=== PATIENT | female | born 1995 | race Caucasian/White ===

== ENCOUNTER 2018-07-10 17:28 | Emergency (ER) | payer OTHER ==
--- NOTE | 2018-07-10 17:42 | PDOC ---
Rapid Medical Evaluation Time Seen by Provider: 07/10/18 17:38 Medical Evaluation: Allergies Allergy/AdvReac Type Severity Reaction Status Date / Time No Known Allergies Allergy Verified 04/06/15 11:19 07/10/18 17:38 I have performed a brief in-person evaluation of this patient. The patient presents with a chief complaint of: abd cramping. +HPT. LMP-06/16/18 Pertinent physical exam findings: deferred I have ordered the following: labs, urine The patient will proceed to the ED for further evaluation. Discharge Disposition - Diagnosis Abdominal cramping - Referrals - Patient Instructions - Post Discharge Activity
[2018-07-10 17:57] VITALS: BP 157/82; PULSE 93; TEMP 99; BMI 30.7
[2018-07-10 17:57] LABS: BASO % 1.1 % (0-2.0); EOS % 0.7 % (0-4.5); HEMATOCRIT 38.9 % (32.4-45.2); HEMOGLOBIN 13.5 GM/dL (10.7-15.3); LYMPH % 33.8 % (8-40); MCH 31.7 pg (25.7-33.7); MCHC 34.7 g/dl (32.0-36.0); MEAN CELL VOLUME 91.3 fl (80-96); MEAN PLT VOLUME 10.8 fl (7.5-11.1); MONO % 5.5 % (3.8-10.2); NEUT % 58.9 % (42.8-82.8); PLATELET COUNT 259 K/MM3 (134-434); RBC 4.26 M/mm3 (3.60-5.2); RDW 13.4 % (11.6-15.6); WHITE BLOOD COUNT 9.9 K/mm3 (4.0-10.0)
[2018-07-10 18:05] LABS: URINE APPEARANCE CLEAR; URINE BILIRUBIN NEGATIVE (<2.0 mg/dL); URINE COLOR LTYELLOW; URINE GLUCOSE (UA) NEGATIVE (NEGATIVE); URINE KETONE 1+ (NEGATIVE); URINE LEUK ESTERASE TRACE (NEGATIVE); URINE NITRITE NEGATIVE (NEGATIVE); URINE PROTEIN NEGATIVE (NEGATIVE); URINE UROBILINOGEN NEGATIVE mg/dL (0.2-1.0)
[2018-07-10 18:07] LABS: EPI CELLS FEW /HPF (FEW); URINE HYALINE CAST 1 /lpf; URINE MUCUS RARE
[2018-07-10 18:19] LABS: ANION GAP 8 MMOL/L (8-16); BLOOD UREA NITROGEN 8 mg/dL (7-18); CALCIUM 8.5 mg/dL (8.5-10.1); CHLORIDE 101 mmol/L (98-107); CO2 26 mmol/L (21-32); CREATININE 0.7 mg/dL (0.55-1.3); GLUCOSE,RANDOM 94 mg/dL (74-106); POTASSIUM 3.5 mmol/L (3.5-5.1); SODIUM 134 mmol/L (136-145)
[2018-07-10 18:28] LABS: HCG,QUALITATIVE URINE POSITIVE
--- NOTE | 2018-07-10 18:50 | PDOC ---
History of Present Illness - General Chief Complaint: ,Possible Stated Complaint: ABDOMINAL PAIN Time Seen by Provider: 07/10/18 17:38 History Source: Patient Exam Limitations: Clinical Condition - History of Present Illness Initial Comments: 07/10/18 18:45 Patient with no significant past medical history present with complaint of three -day history of suprapubic tenderness, united frequency and dysuria with positive home tests. Patient denies nausea or vomiting. LMP June 14. Patient denies any other symptoms. Denies vaginal bleeding. Timing/Duration: other (3 days) Past History - Past Medical History Allergies/Adverse Reactions: Allergies Allergy/AdvReac Type Severity Reaction Status Date / Time No Known Allergies Allergy Verified 04/06/15 11:19 Home Medications: Ambulatory Orders Nitrofurantoin Monohyd/M-Cryst [Macrobid -] 100 mg PO BID #14 capsule 07/10/18 Vit No.129/Iron/Folic [ One Daily Tablet] 1 each PO DAILY 30 Days #30 tablet 07/10/18 Asthma: Yes COPD: No Diabetes: Yes (PRE-DIABETIC) - Immunization History Immunization Up to Date: Yes - Suicide/Smoking/Psychosocial Hx Smoking Status: No Smoking History: Never smoked Number of Cigarettes Smoked Daily: 0 Information on smoking cessation initiated: No Hx Alcohol Use: No Drug/Substance Use Hx: No Review of Systems - Review of Systems Able to Perform ROS?: Yes Is the patient limited Armenian proficient: No Constitutional: No: Chills, Fever, Malaise HEENTM: No: Symptoms Reported Respiratory: No: Symptoms reported Cardiac (ROS): No: Symptoms Reported ABD/GI: Yes: See HPI, Abdominal cramping (suprapubic tenderness). No: Nausea, Vomiting : Yes: See HPI, Burning, Dysuria, Frequency, Urgency. No: Hematuria Musculoskeletal: No: Back Pain All Other Systems: Reviewed and Negative *Physical Exam - Vital Signs Last Vital Signs Temp Pulse Resp BP Pulse Ox 99.0 F 93 H 16 157/82 100 07/10/18 17:53 07/10/18 17:53 07/10/18 17:53 07/10/18 17:53 07/10/18 17:53 - Physical Exam Comments: 07/10/18 18:47 GENERAL: Well developed, well nourished. Awake and alert. No acute distress. HEENT: Normocephalic, atraumatic. PERRLA, EOMI. No conjunctival pallor. Sclera are non-icteric. Moist mucous membranes. Oropharynx is clear. NECK: Supple. Full ROM. CARDIOVASCULAR: Regular rate and rhythm. No murmurs, rubs, or gallops. Distal pulses are 2+ and symmetric. PULMONARY: No evidence of respiratory distress. Lungs clear to auscultation bilaterally. No wheezing, rales or rhonchi. ABDOMINAL: Mild suprapubic tenderness. Soft. Non-distended. No rebound or guarding. No organomegaly. Normoactive bowel sounds. SKIN: Warm and dry. no cyanosis. Normal capillary refill. No rashes. No jaundice. NEUROLOGICAL: Alert, awake, appropriate. Gait is normal without ataxia. PSYCHIATRIC: Cooperative. Good eye contact. Appropriate mood General Appearance: Yes: Nourished, Appropriately Dressed. No: Apparent Distress Moderate Sedation - Procedure Monitoring Vital Signs: Procedure Monitoring Vital Signs Temperature 99.0 F 07/10/18 17:53 Pulse Rate 93 H 07/10/18 17:53 Respiratory Rate 16 07/10/18 17:53 Blood Pressure 157/82 07/10/18 17:53 O2 Sat by Pulse Oximetry (%) 100 07/10/18 17:53 ED Treatment Course - LABORATORY CBC & Chemistry Diagram: 07/10/18 17:48 07/10/18 17:48 - ADDITIONAL ORDERS Additional order review: Laboratory Results 07/10/18 07/10/18 17:51 17:48 Sodium 134 L Potassium 3.5 Chloride 101 Carbon Dioxide 26 Anion Gap 8 BUN 8 Creatinine 0.7 Creat Clearance w eGFR > 60 Random Glucose 94 Calcium 8.5 Beta HCG, Quant 802.7 Urine Color Ltyellow Urine Appearance Clear Urine pH 5.0 Ur Specific [place] 1.018 Urine Protein Negative Urine Glucose (UA) Negative Urine Ketones 1+ H Urine Blood Negative Urine Nitrite Negative Urine Bilirubin Negative Urine Urobilinogen Negative Ur Leukocyte Esterase Trace Urine WBC (Auto) 3 Urine RBC (Auto) <1 Ur Epithelial Cells Few Hyaline Casts 1 Urine Mucus Rare Urine HCG, Qual Positive 07/10/18 17:48 RBC 4.26 MCV 91.3 MCHC 34.7 RDW 13.4 MPV 10.8 Neutrophils % 58.9 D Lymphocytes % 33.8 D Monocytes % 5.5 Eosinophils % 0.7 Basophils % 1.1 D - RADIOLOGY Radiology Studies Ordered: Category Date Time Status PELVIC / BLADDER US [US] Stat Ultrasound 07/10/18 18:42 Ordered Medical Decision Making - Medical Decision Making 07/10/18 18:51 Patient with no significant past medical history present with complaint of three -day history of urinary frequency, dysuria and suprapubic tenderness with positive home test. Patient denies vaginal bleeding. Exam significant for mild tenderness to suprapubic region without guarding or rebound otherwise normal exam. Beta hCG positive with quantitative beta hCG of 800. CBC and chemistry lab are unremarkable. Pelvic ultrasound ordered to rule out ectopic . Patient be treated for UTI given leukocyte on UA if normal ultrasound with joint follow- up. 07/10/18 19:41 Pelvic ultrasound shows no IUP or adnexal mass which is expected given low beta hCG level of 800. Symptoms likely elderly normal with cystitis versus ectopic . Patient to follow-up with [facility] or ER in 48 hours for repeat beta hCG to evaluate for . Patient is stable for discharge given no vaginal bleeding or symptoms of ectopic on exam. This is a wanted and patient needs close follow-up. Plan discussed with patient and patient agrees with plan and will follow up in ED in 2 days. Strict follow-up instructions given to patient *DC/Admit/Observation/Transfer Diagnosis at time of Disposition: Abdominal cramping, Cystitis, test positive - Discharge Dispostion Disposition: HOME Condition at time of disposition: Stable Decision to Admit order: No - Prescriptions Prescriptions: Nitrofurantoin Monohyd/M-Cryst [Macrobid -] 100 mg PO BID #14 capsule Vit No.129/Iron/Folic [ One Daily Tablet] 1 each PO DAILY 30 Days #30 tablet - Referrals Referrals: Alexandra Gamboa MD [Staff Physician] - - Patient Instructions Additional Instructions: 2 lab work was normal. Your test was positive. Ultrasound did not show any yet given the very early which usually not shown on ultrasound at this age. Follow-up in 2 days with [facility] or in ER for repeat beta hCG blood work to follow-up with ., To emergency room if worsening abdominal pain, vaginal bleeding, severe pelvic pain with nausea vomiting. - Post Discharge Activity
== END 2018-07-10 20:02 | disposition home or self-care (01) ==
LOC: JER 17:28 → JERFT 17:28
DX: O26.891 Other specified pregnancy related conditions, first trimester (principal); O23.11 Infections of bladder in pregnancy, first trimester; Z3A.01 Less than 8 weeks gestation of pregnancy; J45.909 Unspecified asthma, uncomplicated; R73.03 Prediabetes
CPT/HCPCS: 36415; 76817-TC; 80048; 81003; 81015; 84702; 84703; 85025; 86850; 86900; 86901; 87086; 99281-25

== ENCOUNTER 2018-07-12 17:43 | Emergency (ER) | payer OTHER ==
--- NOTE | 2018-07-12 18:03 | PDOC ---
Rapid Medical Evaluation Chief Complaint: ,Possible Time Seen by Provider: 07/12/18 18:03 Medical Evaluation: Allergies Allergy/AdvReac Type Severity Reaction Status Date / Time No Known Allergies Allergy Verified 04/06/15 11:19 07/12/18 18:03 c/o right pelvic pain here for repeat beta HCG and reevaluation. denies vaginal bleeding or discharge PE; patient alert ox3. A: pelvic pain P: labs TVUS patient to the ER for further management of care Discharge Disposition - Diagnosis Pelvic pain - Referrals - Patient Instructions - Post Discharge Activity
[2018-07-12 18:06] VITALS: BP 138/82; PULSE 89; TEMP 98.7; BMI 30.7
[2018-07-12 18:30] LABS: BASO % 0.7 % (0-2.0); EOS % 0.5 % (0-4.5); HEMATOCRIT 39.3 % (32.4-45.2); HEMOGLOBIN 13.4 GM/dL (10.7-15.3); LYMPH % 29.2 % (8-40); MCH 31.4 pg (25.7-33.7); MCHC 34.2 g/dl (32.0-36.0); MEAN CELL VOLUME 91.8 fl (80-96); MEAN PLT VOLUME 11.1 fl (7.5-11.1); MONO % 5.3 % (3.8-10.2); NEUT % 64.3 % (42.8-82.8); PLATELET COUNT 259 K/MM3 (134-434); RBC 4.28 M/mm3 (3.60-5.2); RDW 13.9 % (11.6-15.6); WHITE BLOOD COUNT 11.7 K/mm3 (4.0-10.0)
--- NOTE | 2018-07-12 18:34 | PDOC ---
History of Present Illness - General Chief Complaint: ,Possible Stated Complaint: LABS Time Seen by Provider: 07/12/18 18:03 History Source: Patient Exam Limitations: No Limitations - History of Present Illness Travel History: No Initial Comments: 07/12/18 18:34 Return today for repeat beta hCG and ultrasound. Was here 2 days ago with a beta hCG of 802 and a nondetectable viable uterine . Patient states has minimal cramping, no vaginal drainage or bleeding. Timing/Duration: reports: intermittent Quality: reports: cramping Abdominal Pain Onset Location: reports: suprapubic, unknown Past History - Travel Traveled outside of the country in the last 30 days: No Close contact w/someone who was outside of country & ill: No - Past Medical History Allergies/Adverse Reactions: Allergies Allergy/AdvReac Type Severity Reaction Status Date / Time kiwi Allergy Verified 07/12/18 18:06 latex Allergy Verified 07/12/18 18:06 Home Medications: Ambulatory Orders Nitrofurantoin Monohyd/M-Cryst [Macrobid -] 100 mg PO BID #14 capsule 07/10/18 Vit No.129/Iron/Folic [ One Daily Tablet] 1 each PO DAILY 30 Days #30 tablet 07/10/18 Asthma: Yes COPD: No Diabetes: Yes (PRE-DIABETIC) - Immunization History Immunization Up to Date: Yes - Suicide/Smoking/Psychosocial Hx Smoking Status: No Smoking History: Never smoked Number of Cigarettes Smoked Daily: 0 Hx Alcohol Use: No Drug/Substance Use Hx: No Review of Systems - Review of Systems Able to Perform ROS?: Yes Is the patient limited Cook Islander proficient: Yes Constitutional: Yes: See HPI. No: Symptoms Reported, Fever, Malaise HEENTM: No: Symptoms Reported Respiratory: No: Symptoms reported ABD/GI: Yes: See HPI. No: Symptoms Reported, Diarrhea, Nausea, Abdominal cramping Musculoskeletal: No: Symptoms Reported All Other Systems: Reviewed and Negative *Physical Exam - Vital Signs Last Vital Signs Temp Pulse Resp BP Pulse Ox 98.7 F 89 18 138/82 99 07/12/18 18:05 07/12/18 18:05 07/12/18 18:05 07/12/18 18:05 07/12/18 18:05 - Physical Exam General Appearance: Yes: Nourished, Appropriately Dressed HEENT: positive: DAVI, Normal ENT Inspection, TMs Normal, Pharynx Normal Neck: positive: Supple. negative: Tender Respiratory/Chest: positive: Lungs Clear, Normal Breath Sounds Musculoskeletal: positive: Normal Inspection. negative: CVA Tenderness Extremity: positive: Normal Capillary Refill Integumentary: positive: Dry, Warm, Pale Neurologic: positive: vegetable cook II-XII NML intact, Fully Oriented, Alert, Normal Mood/ Affect, Normal Response, Motor Strength 5/5 Moderate Sedation - Procedure Monitoring Vital Signs: Procedure Monitoring Vital Signs Temperature 98.7 F 07/12/18 18:05 Pulse Rate 89 07/12/18 18:05 Respiratory Rate 18 07/12/18 18:05 Blood Pressure 138/82 07/12/18 18:05 O2 Sat by Pulse Oximetry (%) 99 07/12/18 18:05 ED Treatment Course - LABORATORY CBC & Chemistry Diagram: 07/12/18 18:11 *DC/Admit/Observation/Transfer Diagnosis at time of Disposition: Early stage of - Discharge Dispostion Disposition: HOME Condition at time of disposition: Stable Decision to Admit order: No - Referrals Referrals: Rachael Harrell MD [Staff Physician] - - Patient Instructions Printed Discharge Instructions: DI for Abdominal Pain -- Early Additional Instructions: Rest, avoid heavy lifting or strenuous activity until cleared by DrMicky Drink lots of fluids, Will need repeat lab work/beta hCG and ultrasound in 2-3 days either here or at [facility] Return immediately to emergency department for recurrence of pain, fevers, bleeding or vaginal drainage. - Post Discharge Activity Forms/Work/School Notes: Back to Work
== END 2018-07-12 19:54 | disposition home or self-care (01) ==
LOC: JERFT 17:43
DX: Z09 Encounter for follow-up examination after completed treatment for conditions other than malignant neoplasm (principal); R10.2 Pelvic and perineal pain; O26.891 Other specified pregnancy related conditions, first trimester; Z3A.00 Weeks of gestation of pregnancy not specified
CPT/HCPCS: 36415; 76817-TC; 84702; 85025; 99281-25

== ENCOUNTER 2018-07-28 17:56 | Emergency (ER) | payer OTHER ==
[2018-07-28 18:09] VITALS: BP 125/62; PULSE 86; TEMP 98.5; BMI 30.9
--- NOTE | 2018-07-28 18:09 | PDOC ---
Rapid Medical Evaluation Time Seen by Provider: 07/28/18 18:06 Medical Evaluation: Allergies Allergy/AdvReac Type Severity Reaction Status Date / Time kiwi Allergy Verified 07/28/18 18:06 latex Allergy Verified 07/28/18 18:06 07/28/18 18:06 I have performed a brief in-person evaluation of this patient. The patient presents with a chief complaint of: 22 y/o 7 weeks gravid bleeding and cramping over the last 30 minutes Pertinent physical exam findings:NAD I have ordered the following:Labs US The patient will proceed to the ED for further evaluation. Discharge Disposition - Diagnosis Threatened - Referrals - Patient Instructions - Post Discharge Activity
[2018-07-28 18:31] LABS: BASO % 0.5 % (0-2.0); EOS % 0.7 % (0-4.5); HEMATOCRIT 37.7 % (32.4-45.2); LYMPH % 17.6 % (8-40); MCH 31.5 pg (25.7-33.7); MCHC 34.6 g/dl (32.0-36.0); MEAN CELL VOLUME 91.3 fl (80-96); MEAN PLT VOLUME 10.8 fl (7.5-11.1); MONO % 5.4 % (3.8-10.2); NEUT % 75.8 % (42.8-82.8); PLATELET COUNT 238 K/MM3 (134-434); RBC 4.13 M/mm3 (3.60-5.2); RDW 13.5 % (11.6-15.6)
[2018-07-28 18:44] LABS: INR 1.22 (0.83-1.09); PROTHROMBIN TIME (PATIENT) 14.4 SEC (9.7-13.0)
[2018-07-28 19:27] LABS: ALBUMIN 3.9 g/dl (3.4-5.0); ALK PHOS 78 U/L (45-117); ANION GAP 8 MMOL/L (8-16); BILIRUBIN,TOTAL 0.3 mg/dL (0.2-1); BLOOD UREA NITROGEN 6 mg/dL (7-18); CALCIUM 8.4 mg/dL (8.5-10.1); CHLORIDE 100 mmol/L (98-107); CO2 24 mmol/L (21-32); CREATININE 0.6 mg/dL (0.55-1.3); GLUCOSE,RANDOM 78 mg/dL (74-106); POTASSIUM 3.8 mmol/L (3.5-5.1); SGOT/AST 10 U/L (15-37); SGPT/ALT 18 U/L (13-61); SODIUM 132 mmol/L (136-145); TOT PROT 7.2 g/dl (6.4-8.2)
--- NOTE | 2018-07-28 19:32 | PDOC ---
History of Present Illness - General Chief Complaint: Vaginal Bleeding Stated Complaint: SEVEN WEEKS /BLEEDING Time Seen by Provider: 07/28/18 18:06 History Source: Patient Exam Limitations: No Limitations - History of Present Illness Initial Comments: HPI: 22 y/o female presenting to [facility] ER complaining of bleeding on toilet paper when cleaning after voiding. Pt is 6w3d by LMP (14 Jun 2018). Noticed the blood this evening after returning home work. Endorses lower abdominal pain described as crampy with radiation to lower back. Denies dysuria, hematuria, or vaginal discharge. Is concerned she is having a mischarrage. OBGYN Hx: - A1, spontaneous during first trimester - Abnormal PAP smear last year. S/p colposcopy, reportedly normal. - Denies h/o STD OBGYN: Dr. Cotter PCP: None Medical Hx: - Asthma, managed with albuterol Surgical Hx: - Tonsillectomy Past History - Past Medical History Allergies/Adverse Reactions: Allergies Allergy/AdvReac Type Severity Reaction Status Date / Time kiwi Allergy Verified 07/28/18 18:06 latex Allergy Verified 07/28/18 18:06 Home Medications: Ambulatory Orders Nitrofurantoin Monohyd/M-Cryst [Macrobid -] 100 mg PO BID #14 capsule 07/10/18 Vit No.129/Iron/Folic [ One Daily Tablet] 1 each PO DAILY 30 Days #30 tablet 07/10/18 Asthma: Yes COPD: No Diabetes: Yes (PRE-DIABETIC) - Immunization History Immunization Up to Date: Yes - Suicide/Smoking/Psychosocial Hx Smoking Status: No Smoking History: Never smoked Number of Cigarettes Smoked Daily: 0 Information on smoking cessation initiated: No Hx Alcohol Use: No Drug/Substance Use Hx: No Review of Systems - Review of Systems Able to Perform ROS?: Yes Comments:: In addition to that documented in the HPI above, the additional ROS was obtained : Constitutional: Denies fevers or chills Head: Denies vision changes ENMT: Denies sore throat CV: Denies chest pain Resp: Denies SOB GI: Denies vomiting or diarrhea : Per HPI MSK: Denies recent trauma Skin: Denies new rashes Neuro: Denies new numbness or tingling or weakness Endocrine: Denies polyuria Heme: Denies bleeding or bruising *Physical Exam - Vital Signs Last Vital Signs Temp Pulse Resp BP Pulse Ox 98.5 F 86 18 125/62 100 07/28/18 18:06 07/28/18 18:06 07/28/18 18:06 07/28/18 18:06 07/28/18 18:06 - Physical Exam Comments: Constitutional: Well-developed, well-nourished adult female in no acute distress or obvious discomfort. Found semi-fowlers on hospital hallway bed. Alert and oriented x4. Answered all questions appropriately and completely. Speech was non-labored, non-pressured. Head: Normocephalic. No obvious external signs of trauma. Eyes: Sclerae white. Ears: Hearing grossly intact. Nose: No nasal discharge. Neck: Supple, trachea is midline. Cardiovascular / Chest: Regular rate and regular rhythm. No murmur, rubs, clicks, or gallops. Peripheral pulses: radial pulses full. Respiratory: Breathing unlabored. Equal chest rise and fall. Clear to auscultation bilaterally. No stridor, no wheezing, no rhonchi. Gastrointestinal: abdomen is tender in middle of the left side of the abdomen without rebound or guarding. Globally abdomen is soft and nondistended. No overlying skin lesions or obvious signs of trauma. Neuro: Alert and oriented. Moving all four extremities spontaneously. Skin: Warm, dry, and intact. : No R or L CVA tenderness. Psych: Affect: appropriate. Mood: normal. Female Pelvic: External genitalia unremarkable. Speculum exam revealed trace blood and normal appearing whitish vaginal discharge. Vaginal wall mucosa is unremarkable. Cervix visualized and is unremarkable (closed in appearance without any protruding material). Bimanual exam with right adnexal tenderness but no cervical motion tenderness or any masses appreciated. Sales Apprentice chaperoned exam. Moderate Sedation - Procedure Monitoring Vital Signs: Procedure Monitoring Vital Signs Temperature 98.5 F 07/28/18 18:06 Pulse Rate 86 07/28/18 18:06 Respiratory Rate 18 07/28/18 18:06 Blood Pressure 125/62 07/28/18 18:06 O2 Sat by Pulse Oximetry (%) 100 07/28/18 18:06 ED Treatment Course - LABORATORY CBC & Chemistry Diagram: 07/28/18 18:14 07/28/18 18:14 - ADDITIONAL ORDERS Additional order review: Laboratory Results 07/28/18 07/28/18 18:14 18:14 PT with INR 14.40 H INR 1.22 H Sodium 132 L Potassium 3.8 Chloride 100 Carbon Dioxide 24 Anion Gap 8 BUN 6 L Creatinine 0.6 Creat Clearance w eGFR 123.89 Random Glucose 78 Calcium 8.4 L Total Bilirubin 0.3 AST 10 L ALT 18 Alkaline Phosphatase 78 Total Protein 7.2 Albumin 3.9 07/28/18 18:14 RBC 4.13 MCV 91.3 MCHC 34.6 RDW 13.5 MPV 10.8 Neutrophils % 75.8 Lymphocytes % 17.6 D Monocytes % 5.4 Eosinophils % 0.7 Basophils % 0.5 Medical Decision Making - Medical Decision Making *Reviewed vital signs, nursing notes, and prior visit documentation (if available). 22 y/o female with vaginal spotting during first trimester of . Reassuring pelvic exam. Reassuring ultrasound revealing single IUP. Beta above discriminatory zone. Suspect physiologic vaginal bleeding of . Low suspicion for threatened versus ectopic . UA unremarkable for pyuria or nitrites. Only 1+ leukocyte esterase. Given multiple epithelial cells, suspect this is likely secondary to contamination. Will not prescribe antibiotics. A Positive. No rhogam indicated. Discussed imaging and laboratory results with pt. Answered all questions. Provided return precautions. Pt expressed verbal understanding and agreement with plan to discharge home with outpatient follow up. Already has OB follow up scheduled for this coming Tuesday. Provided copies of todays results. *DC/Admit/Observation/Transfer Diagnosis at time of Disposition: Threatened , Vaginal spotting - Discharge Dispostion Disposition: HOME Condition at time of disposition: Good Decision to Admit order: No - Referrals - Patient Instructions Printed Discharge Instructions: DI for Vaginal Bleeding During Additional Instructions: You were seen today for small about of vaginal bleeding. Your blood work and ultrasound were normal today. The bleeding is likely normal first trimester bleeding. You should follow up with your OBGYN at your previously scheduled appointment on Tuesday. Your urine did not show signs of infection. NO antibiotics were sent to your pharmacy. The results of todays visit are attached to this packet. Take it with you so your doctor can review them. Go to the nearest emergency department if your condition worsens or you feel like you need additional emergency evaluation. Print Language: LAO - Post Discharge Activity
--- NOTE | 2018-07-28 20:54 | PDOC ---
Attending Attestation - Resident Resident Name: Se Vicente - ED Attending Attestation I have performed the following: I have examined & evaluated the patient, The case was reviewed & discussed with the resident, I agree w/resident's findings & plan, Exceptions are as noted - HPI HPI: 07/28/18 20:52 The patient is a 22 year old female, A1, 6 weeks , with a significant past medical history of asthma who presents to the emergency department with vaginal bleeding today. The patient states she endorses lower abdominal cramps" that have since resolved. The patient reports her LMP was . The patient also endorses cough x 1 week and notes she had a fever last night at home. The patient denies shortness of breath, fever, chills, diarrhea or constipation. The patient denies dysuria, frequency, vaginal discharge or hematuria. Allergies: NKDA Past surgical history:Tonsillectomy Social history: None reported OBGYN: Dr. Cotter - Physicial Exam PE: 07/28/18 20:53 GENERAL: Awake, alert, and fully oriented, in no acute distress. HEAD: No signs of trauma EYES: PERRLA, EOMI, sclera anicteric, conjunctiva clear ENT: Auricles normal inspection, hearing grossly normal, nares patent, oropharynx clear without exudates. Moist mucosa NECK: Nontender, no stepoffs, Normal ROM, supple, no lymphadenopathy, JVD, or masses LUNGS: Breath sounds equal, clear to auscultation bilaterally. No wheezes, and no crackles HEART: Regular rate and rhythm, normal S1 and S2, no murmurs, rubs or gallops ABDOMEN: Soft, nontender, normoactive bowel sounds. No guarding, no rebound. No masses EXTREMITIES: Normal range of motion, no edema. No clubbing or cyanosis. No cords, erythema, or tenderness NEUROLOGICAL: Cranial nerves II through XII intact. 5/5 strength and sensation in all extremities, Normal speech, normal gait, normal cerebellar function SKIN: Warm, Dry, normal turgor, no rashes or lesions noted. - Medical Decision Making 07/28/18 20:53 22 F with vaginal spotting and cramps, now resolved. Will evaluate for miscarriage/ectopic. Pt with no focal infectious signs now but will r/o flu given fever last night. - Labs, HCG, T&S - TVUS - flu swab 07/28/18 22:19 Labs, US wnl Flu negative Pt is well appearing, with normal vitals. Clinically stable for DC at this time. I discussed the physical exam findings, ancillary test results and final diagnoses with the patient. I answered all of the patient's questions. The patient was satisfied with the care received and felt comfortable with the discharge plan and treatment plan. The patient agrees to follow up with the primary care physician within 24-72 hours.
[2018-07-28 22:10] LABS: URINE COLOR YELLOW
[2018-07-28 22:11] LABS: URINE APPEARANCE SL CLOUDY; URINE BILIRUBIN NEGATIVE (<2.0 mg/dL); URINE GLUCOSE (UA) NEGATIVE (NEGATIVE); URINE KETONE TRACE (NEGATIVE)
[2018-07-28 22:12] LABS: PH,URINE 6.5 (5.0-8.0); URINE LEUK ESTERASE 1+ (NEGATIVE); URINE NITRITE NEGATIVE (NEGATIVE); URINE PROTEIN NEGATIVE (NEGATIVE); URINE UROBILINOGEN 0.2 mg/dL (0.2-1.0)
[2018-07-28 22:33] LABS: EPI CELLS MANY /HPF (0-5); URINE BACTERIA FEW /hpf (NEGATIVE)
== END 2018-07-28 22:58 | disposition home or self-care (01) ==
LOC: JER 17:56
DX: O26.891 Other specified pregnancy related conditions, first trimester (principal); Z3A.01 Less than 8 weeks gestation of pregnancy; O20.0 Threatened abortion
CPT/HCPCS: 36415; 76801-TC; 80053; 81003; 84702; 85025; 85610; 86850; 86900; 86901; 87086; 87804; 99283-25